=== PATIENT | male | born 2000 | race African-American/Black ===

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

== ENCOUNTER 2018-02-11 23:04 | Emergency (ER) | payer SELFPAY ==
[2018-02-12] MEDS ORDERED: ACETAMINOPHEN 325 MG TABLET ONE (00:18)
--- NOTE | 2018-02-12 00:43 | ER ---
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 Transition of ak1 care: patient was not received from another setting of care. Onset of symptoms is unknown. Risk Assessment: Do you want to hurt yourself or someone else? Patient reports no desire to harm self or others. Initial Sepsis Screen: Does the patient meet any 2 criteria? No. Patient's initial sepsis screen is negative. Does the patient have a suspected source of infection? No. Patient's initial sepsis screen is negative. Care prior to arrival: None. 23:19 Acuity: KOREY 4 ak1 23:19 Method Of Arrival: Ambulatory ak1 Triage Assessment: 23:20 General: Appears in no apparent distress. Behavior is calm, cooperative. Pain: ak1 Complains of pain in throat and headache. EENT: Reports pain in throat when swallowing. Neuro: Level of Consciousness is awake, alert, obeys commands, Oriented to person, place, time, situation, Poultry Farm Supervisor are equal bilaterally Moves all extremities. Gait is steady, Speech is normal, Facial symmetry appears normal. Cardiovascular: No deficits noted. Respiratory: No deficits noted. GI: No signs and/or symptoms were reported involving the gastrointestinal system. : No signs and/or symptoms were reported regarding the genitourinary system. Derm: No signs and/or symptoms reported regarding the dermatologic system. Musculoskeletal: No signs and/or symptoms reported regarding the musculoskeletal system. Historical: - Allergies: 23:20 PENICILLINS; ak1 23:20 Bees; ak1 - Home Meds: 23:20 None [Active]; ak1 - PMHx: 23:20 None; ak1 - PSHx: 23:20 HAND SURGERY; Appendectomy; ak1 - Immunization history:: Adult Immunizations up to date. - Social history:: Smoking status: Patient/guardian denies using tobacco. - Ebola Screening: : No symptoms or risks identified at this time. Screenin/14 00:58 Abuse screen: Denies threats or abuse. Denies injuries from another. Nutritional ak1 screening: No deficits noted. Tuberculosis screening: No symptoms or risk factors identified. Fall Risk None identified. Assessment: 00:59 Respiratory: Airway is patent Respiratory effort is even, unlabored, Breath sounds are ak1 clear. 00:59 EENT: Throat is reddened. ak1 01:00 Reassessment: Patient appears in no apparent distress at this time. see triage ak1 assessment. Vital Signs: 02/11 23:18 BP 131 / 70; Pulse 98; Resp 16; Temp 100.0(O); Pulse Ox 99% on R/A; Weight 90.72 kg ak1 (R); Height 6 ft. 2 in. (187.96 cm) (R); Pain 8/10; 02/12 00:58 BP 129 / 69; Pulse 84; Resp 16; Temp 99.6(O); Pulse Ox 100% on R/A; Pain 7/10; ak1 02/11 23:18 Body Mass Index 25.68 (90.72 kg, 187.96 cm) ak1 ED Course: 02/11 23:07 Patient arrived in ED. es 23:18 Ana Higuera, RN is Primary Nurse. ak1 23:18 Wolf Torres PA is PHCP. jr8 23:18 Niko Davis MD is Attending Physician. jr8 23:20 Triage completed. ak1 23:20 Arm band placed on Patient placed in an exam room, on a stretcher, on pulse oximetry, ak1 Patient notified of wait time. 02/12 00:58 Patient has correct armband on for positive identification. Bed in low position. Call ak1 light in reach. Side rails up X 1. Pulse ox on. NIBP on. 00:59 No provider procedures requiring assistance completed. Patient did not have IV access ak1 during this emergency room visit. Administered Medications: 00:14 Drug: Tylenol 650 mg Route: PO; ak1 01:00 Follow up: Response: No adverse reaction ak1 Outcome: 00:43 Discharge ordered by . jr8 00:59 Discharged to home ambulatory, with family. ak1 00:59 Condition: good 00:59 Discharge instructions given to patient, family, Instructed on discharge instructions, follow up and referral plans. no drinking with medication, no driving heavy equipment, medication usage, Demonstrated understanding of instructions, follow-up care, medications, Prescriptions given X 1. 01:02 Patient left the ED. ak1 Signatures: Keyona Blanco Josh, PA PA jr8 Ana Higuera, RN RN ak1
--- NOTE | 2018-02-12 00:44 | EDPHYS ---
Physician Documentation [facility] Name: Jose Hutson Age: 17 yrs Sex: Male : 2000 Arrival Date: 02/11/2018 Time: 23:07 Bed 15 Private MD: ED Physician Niko Davis HPI: 02/12 00:39 This 17 yrs old Black Male presents to ER via Ambulatory with complaints of Sore jr8 Throat, Headache, Back Pain. 00:39 The patient presents with sore throat. The patient describes throat pain as constant. jr8 Onset: The symptoms/episode began/occurred acutely, today. Severity of symptoms: At their worst the symptoms were moderate, in the emergency department the symptoms are unchanged. Associated signs and symptoms: Pertinent positives: fever. The patient has not experienced similar symptoms in the past. The patient has not recently seen a physician. Historical: - Allergies: 02/11 23:20 PENICILLINS; ak1 23:20 Bees; ak1 - Home Meds: 23:20 None [Active]; ak1 - PMHx: 23:20 None; ak1 - PSHx: 23:20 HAND SURGERY; Appendectomy; ak1 - Immunization history:: Adult Immunizations up to date. - Social history:: Smoking status: Patient/guardian denies using tobacco. - Ebola Screening: : No symptoms or risks identified at this time. ROS: 02/12 00:39 Eyes: Negative for injury, pain, redness, and discharge, Neck: Negative for injury, jr8 pain, and swelling, Cardiovascular: Negative for chest pain, palpitations, and edema, Respiratory: Negative for shortness of breath, cough, wheezing, and pleuritic chest pain, Abdomen/GI: Negative for abdominal pain, nausea, vomiting, diarrhea, and constipation, Back: Negative for injury and pain, MS/Extremity: Negative for injury and deformity, Skin: Negative for injury, rash, and discoloration, Neuro: Negative for headache, weakness, numbness, tingling, and seizure. Constitutional: Positive for fever. ENT: Positive for sore throat. Exam: 00:39 Eyes: Pupils equal round and reactive to light, extra-ocular motions intact. Lids and jr8 lashes normal. Conjunctiva and sclera are non-icteric and not injected. Cornea within normal limits. Periorbital areas with no swelling, redness, or edema. Neck: Trachea midline, no thyromegaly or masses palpated, and no cervical lymphadenopathy. Supple, full range of motion without nuchal rigidity, or vertebral point tenderness. No Meningismus. Cardiovascular: Regular rate and rhythm with a normal S1 and S2. No gallops, murmurs, or rubs. Normal PMI, no JVD. No pulse deficits. Respiratory: Lungs have equal breath sounds bilaterally, clear to auscultation and percussion. No rales, rhonchi or wheezes noted. No increased work of breathing, no retractions or nasal flaring. Abdomen/GI: Soft, non-tender, with normal bowel sounds. No distension or tympany. No guarding or rebound. No evidence of tenderness throughout. Back: No spinal tenderness. No costovertebral tenderness. Full range of motion. Skin: Warm, dry with normal turgor. Normal color with no rashes, no lesions, and no evidence of cellulitis. MS/ Extremity: Pulses equal, no cyanosis. Neurovascular intact. Full, normal range of motion. Neuro: Awake and alert, GCS 15, oriented to person, place, time, and situation. Cranial nerves II-XII grossly intact. Motor strength 5/5 in all extremities. Sensory grossly intact. Cerebellar exam normal. Normal gait. 00:39 ENT: Exam is negative for earache, ear discharge, TM abnormalities, nasal discharge, Posterior pharynx: Airway: patent, Tonsils: bilaterally enlarged, with erythema, with exudate, no ulcerations, Uvula: midline, non-edematous, no erythema, swelling, is not appreciated, erythema, that is mild. Vital Signs: 02/11 23:18 BP 131 / 70; Pulse 98; Resp 16; Temp 100.0(O); Pulse Ox 99% on R/A; Weight 90.72 kg ak1 (R); Height 6 ft. 2 in. (187.96 cm) (R); Pain 8/10; 02/12 00:58 BP 129 / 69; Pulse 84; Resp 16; Temp 99.6(O); Pulse Ox 100% on R/A; Pain 7/10; ak1 02/11 23:18 Body Mass Index 25.68 (90.72 kg, 187.96 cm) ak1 MDM: 02/11 23:19 Patient medically screened. jr8 02/12 00:39 Data reviewed: vital signs, nurses notes, and as a result, I will discharge patient. jr8 Data interpreted: Pulse oximetry: on room air is 99 %. Interpretation: normal. Counseling: I had a detailed discussion with the patient and/or guardian regarding: the historical points, exam findings, and any diagnostic results supporting the discharge/admit diagnosis, the need for outpatient follow up, a family practitioner, to return to the emergency department if symptoms worsen or persist or if there are any questions or concerns that arise at home. 02/12 00:07 Order name: Strep; Complete Time: 00:43 ak1 02/12 00:08 Order name: Flu; Complete Time: 00:43 ak1 02/12 00:40 Order name: Throat Culture EDMS Administered Medications: 00:14 Drug: Tylenol 650 mg Route: PO; ak1 01:00 Follow up: Response: No adverse reaction ak1 Disposition: 02:49 Co-signature as Attending Physician, Niko Davis MD I agree with the assessment and kdr plan of care. Disposition: 02/12/18 00:43 Discharged to Home. Impression: Acute tonsillitis. - Condition is Stable. - Discharge Instructions: Tonsillitis. - Prescriptions for Zithromax Z- Junior 250 mg Oral Tablet - take 1 tablet by ORAL route as directed for 5 days Day 1 - take two (2) tablets one time. Day 2, 3, 4 , 5 take one (1) tablet once daily.; 6 tablet. - Medication Reconciliation Form, Thank You Letter, Antibiotic Education, Prescription Opioid Use form. - Follow up: Private Physician; When: 1 week; Reason: Recheck today's complaints, Continuance of care, Re-evaluation by your physician. - Problem is new. - Symptoms have improved. Signatures: Dispatcher [employer] EDNM Niko Davis MD MD [facility] Wolf Torres PA PA jr8 Ana Higuera RN RN ak1 Corrections: (The following items were deleted from the chart) 01:02 00:43 02/12/2018 00:43 Discharged to Home. Impression: Acute tonsillitis. Condition is ak1 Stable. Forms are Medication Reconciliation Form, Thank You Letter, Antibiotic Education, Prescription Opioid Use. Follow up: Private Physician; When: 1 week; Reason: Recheck today's complaints, Continuance of care, Re-evaluation by your physician. Problem is new. Symptoms have improved. jr8
[2018-02-12 01:10] VITALS: BP 129/69; TEMP 99.6; O2SAT 100
== END 2018-02-12 01:02 | disposition home or self-care (01) ==
LOC: ER 23:04
DX: J03.90 Acute tonsillitis, unspecified (principal); Z88.0 Allergy status to penicillin; Z91.030 Bee allergy status
CPT/HCPCS: 87070; 87081; 87804; 99283

== ENCOUNTER 2022-02-21 05:55 | Emergency (ER) | payer SELFPAY ==
--- OUTSIDE RECORDS SUMMARY | 2022-02-21 05:58 | XMS REPORT | Continuity of Care Document ---
:2000 Author Organization [facility] t Address 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 12-25 ity of 00:00: [place] [id number] Medical Branch Allergies, Adverse Reactions, Alerts Allergy Allergy Status Severity Reaction(s) Onset Inactive Treating Comm ents Source Name Type Date Date Clinician PENICILL Drug Active Rash Univers INS Class 6- ity of 00:00: [address] Penicill Propensi Active Rash Univer s ins ty to 11-27 ity of adverse 00:00: [place] [facility] Social History Social Habit Start Date Stop Date Quantity Comments Source Exposure to Unable to assess Univers ity of SARS-CoV-2 [facility] (event) Branch Sex Assigned At [birth year] Universit y of 00:00:00 00:00:00 [facility] Smoking Status Start Date Stop Date Source Unknown if ever smoked [facility] y [facility] Medications This patient has no known medications. Vital Signs Vital Name Observation Time Observation Value Comments Source Diastolic blood 2021-08-19 15:47:00 103 mm[Hg] Unive rsity of pressure [facility] Heart rate 2021-08-19 15:47:00 94 /min Universi ty [facility] Body temperature 2021-08-19 15:47:00 36 Rody Univ ersity of [facility] Respiratory rate 2021-08-19 15:47:00 18 /min [facility] Body weight 2021-08-19 15:47:00 90.719 kg [facility] Oxygen saturation in 2021-08-19 15:47:00 99 /min [facility] Arterial blood by [facility] Pulse oximetry Branch Systolic blood 2021-08-19 15:47:00 171 mm[Hg] Univer sity of pressure [facility] Procedures Procedure Date / Time Performed Performing Clinician Sourc e NOTICE OF PRIVACY 2021-08-19 15:43:14 Doctor Unassigned, No Univ [facility] PRACTICES Name [facility] CONSENT/REFUSAL FOR 2021-08-19 15:42:56 Doctor Unassigned, No Un [facility] DIAGNOSIS AND Name [facility] [place] TREATMENT Encounters Start End Encounter Admission Attending Care Care Encounter Source Date/Time Date/Time Type Type Clinicians Facility Department ID 2021-08-19 2021-08-19 Emergency X YOLANDA WIJITENDRA ERT [id number] Univers 10:52:00 11:12:00 JADE mckeon [facility] 2021-08-19 2021-08-19 Emergency Yolanda WIJITENDRA [id number] Univers 10:52:00 11:12:00 Jade HOLGUIN [id number] linda pickard DEETH [id number] [facility] [id number] [facility] 084 Branch Results This patient has no known results.
--- NOTE | 2022-02-21 06:05 | ER ---
Nurse's Notes [facility] Name: Jose Hutson Age: 21 yrs Sex: Male : 2000 Arrival Date: 02/21/2022 Time: 05:57 Bed IW1 Private MD: Diagnosis: Uvulitis;Pain in throat Presentation: 02/21 06:02 Chief complaint: Patient states: "I looked at my uvula and it looked really red and tw5 swollen. Coronavirus screen: Vaccine status: Patient reports receiving the 2nd dose of the covid vaccine. Unknown. Ebola Screen: Patient negative for fever greater than or equal to 101.5 degrees Fahrenheit, and additional compatible Ebola Virus Disease symptoms Patient denies exposure to infectious person. Patient denies travel to an Ebola-affected area in the 21 days before illness onset. Initial Sepsis Screen: Does the patient meet any 2 criteria? No. Patient's initial sepsis screen is negative. Does the patient have a suspected source of infection? No. Patient's initial sepsis screen is negative. Risk Assessment: Do you want to hurt yourself or someone else? Patient reports no desire to harm self or others. Onset of symptoms is unknown. 06:02 Method Of Arrival: Ambulatory tw5 06:02 Acuity: KOREY 5 tw5 Triage Assessment: 06:03 General: Appears in no apparent distress. Behavior is calm, cooperative, appropriate tw5 for age. Pain: Complains of pain in throat Pain currently is 7 out of 10 on a pain scale. EENT: Throat is reddened. Historical: - Allergies: 06:03 Bees; tw5 06:03 PENICILLINS; tw5 - PMHx: 06:03 None; tw5 - PSHx: 06:03 None; tw5 - Immunization history:: Adult Immunizations not up to date. - Social history:: Smoking status: Patient reports the use of cigarette tobacco products, cigars. Screenin:04 Abuse screen: Denies threats or abuse. Denies injuries from another. Nutritional tw5 screening: No deficits noted. Tuberculosis screening: No symptoms or risk factors identified. Fall Risk None identified. Assessment: 06:04 General: see triage. tw5 06:27 Respiratory: Airway is patent Respiratory effort is even, unlabored, Breath sounds are tw5 clear. Vital Signs: 06:02 BP 130 / 71; Pulse 87; Resp 18; Temp 98.4; Pulse Ox 100% ; Weight 95.25 kg; Height 6 tw5 ft. 2 in. (187.96 cm); Pain 7/10; 06:02 Body Mass Index 26.96 (95.25 kg, 187.96 cm) tw5 ED Course: 05:57 Patient arrived in ED. bp1 05:58 Ramu Hayward DO is Attending Physician. ms3 06:03 Triage completed. tw5 06:03 Nicolas Moeller DO is Referral Physician. ms3 06:03 Arm band placed on. tw5 06:04 Patient has correct armband on for positive identification. tw5 06:04 No provider procedures requiring assistance completed. Patient did not have IV access tw5 during this emergency room visit. Administered Medications: 06:16 Drug: Decadron (dexamethasone) 10 mg Route: IM; Site: left deltoid; tw5 Medication: 06:04 VIS not applicable for this client. tw5 Outcome: 06:04 Discharge ordered by . ms3 06:27 Discharged to home ambulatory. tw5 06:27 Condition: good 06:27 Discharge instructions given to patient, Instructed on discharge instructions, follow up and referral plans. Demonstrated understanding of instructions. 06:28 Patient left the ED. tw5 Signatures: Ramu Hayward DO DO ms3 FrancoCarlotta moya bp1 Tanvi Melchor tw5
--- NOTE | 2022-02-21 06:05 | EDPHYS ---
Physician Documentation [facility] Name: Jose Hutson Age: 21 yrs Sex: Male : 2000 Arrival Date: 02/21/2022 Time: 05:57 Bed IW1 Private MD: ED Physician Ramu Hayward HPI: 02/21 06:08 This 21 yrs old Black Male presents to ER via Ambulatory with complaints of Sore ms3 Throat, 'Swollen Uvula'. 06:08 21-year-old male with no past medical history presents for uvula swelling that he noted ms3 at 5:30 AM. Patient states when he awoke he could feel his uvula swollen, his noted he was snoring. Patient denies pain at this time. Patient states he does have pain when swallowing. Patient denies alleviating factors. Patient denies fevers, chills, nausea, vomiting.. Historical: - Allergies: 06:03 Bees; tw5 06:03 PENICILLINS; tw5 - PMHx: 06:03 None; tw5 - PSHx: 06:03 None; tw5 - Immunization history:: Adult Immunizations not up to date. - Social history:: Smoking status: Patient reports the use of cigarette tobacco products, cigars. ROS: 06:08 Constitutional: Negative for fever, and chills. Eyes: Negative for injury, pain, ms3 redness, and discharge, Cardiovascular: Negative for chest pain, and palpitations. Respiratory: Negative for shortness of breath, cough, wheezing, and pleuritic chest pain, Abdomen/GI: Negative for abdominal pain, nausea, vomiting, diarrhea, and constipation, MS/Extremity: Negative for injury and deformity, Skin: Negative for injury, rash, and discoloration, Neuro: Negative for headache, weakness, numbness, tingling. 06:08 ENT: Positive for sore throat. Exam: 06:08 Constitutional: This is a well developed, well nourished patient who is awake, alert, ms3 and in no acute distress. Head/Face: Normocephalic, atraumatic. Eyes: Pupils equal round and reactive to light, extra-ocular motions intact. Lids and lashes normal. Conjunctiva and sclera are non-icteric and not injected. Periorbital areas with no swelling, redness, or edema. 06:08 Cardiovascular: Regular rate and rhythm with a normal S1 and S2. No gallops, murmurs, or rubs. Normal PMI, no JVD. No pulse deficits. Respiratory: Lungs have equal breath sounds bilaterally, clear to auscultation and percussion. No rales, rhonchi or wheezes noted. No increased work of breathing, no retractions or nasal flaring. Abdomen/GI: Soft, non-tender, with normal bowel sounds. No distension or tympany. No guarding or rebound. No evidence of tenderness throughout. Skin: Warm, dry with normal turgor. Normal color with no rashes, no lesions, and no evidence of cellulitis. MS/ Extremity: Pulses equal, no cyanosis. Neurovascular intact. Full, normal range of motion. Psych: Awake, alert, with orientation to person, place and time. Behavior, mood, and affect are within normal limits. 06:08 ENT: Posterior pharynx: Uvula: edematous, erythema. Vital Signs: 06:02 BP 130 / 71; Pulse 87; Resp 18; Temp 98.4; Pulse Ox 100% ; Weight 95.25 kg; Height 6 tw5 ft. 2 in. (187.96 cm); Pain 7/10; 06:02 Body Mass Index 26.96 (95.25 kg, 187.96 cm) tw5 MDM: 06:04 Patient medically screened. ms3 06:08 Differential diagnosis: Allergic rhinitis, pharyngitis, uvulitis. Data reviewed: vital ms3 signs, nurses notes, and as a result, I will discharge patient. Counseling: I had a detailed discussion with the patient and/or guardian regarding: the historical points, exam findings, and any diagnostic results supporting the discharge/admit diagnosis, the need for outpatient follow up, to return to the emergency department if symptoms worsen or persist or if there are any questions or concerns that arise at home. ED course: Discussed physical exam findings with patient. Patient to follow-up with his primary care physician in 2 to 3 days. Patient understands and agrees with plan. All questions were answered. Return precautions discussed include worsening symptoms, or any other concerns.. Administered Medications: 06:16 Drug: Decadron (dexamethasone) 10 mg Route: IM; Site: left deltoid; tw5 Disposition Summary: 02/21/22 06:04 Discharge Ordered Location: Home ms3 Condition: Stable ms3 Diagnosis - Uvulitis ms3 - Pain in throat ms3 Followup: ms3 - With: Nicolas Moeller DO - When: 2 - 3 days - Reason: Recheck today's complaints Discharge Instructions: - Discharge Summary Sheet ms3 Forms: - Medication Reconciliation Form ms3 - Thank You Letter ms3 - Antibiotic Education ms3 - Prescription Opioid Use ms3 - Work release form tw5 Prescriptions: - azithromycin 500 mg Oral tablet - take 1 tablet by ORAL route once daily for 5 days; 5 tablet; Refills: 0, ms3 Product Selection Permitted Signatures: Ramu Hayward DO DO ms3 Tanvi Melchor tw5
[2022-02-21] MEDS ORDERED: dexAMETHasone 10 MG/ML VIAL ONE (06:20)
[2022-02-22 16:06] VITALS: BP 130/71; TEMP 98.4; O2SAT 100
== END 2022-02-21 06:28 | disposition home or self-care (01) ==
LOC: ER 05:55
DX: K12.2 Cellulitis and abscess of mouth (principal); F17.290 Nicotine dependence, other tobacco product, uncomplicated; Z88.0 Allergy status to penicillin; Z91.030 Bee allergy status
CPT/HCPCS: 96372; 99283; J1100

== ENCOUNTER 2022-11-16 22:19 | Emergency (ER) | payer SELFPAY ==
--- OUTSIDE RECORDS SUMMARY | 2022-11-16 22:25 | XMS REPORT | Continuity of Care Document ---
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 12-25 ity of 00:00: [address] Allergies, Adverse Reactions, Alerts Allergy Allergy Status Severity Reaction(s) Onset Inactive Treating Comm ents Source Name Type Date Date Clinician PENICILL Drug Active Rash Univers INS Class 11-27 ity of 00:00: [address] Branch Penicill Propensi Active Rash Univer s ins ty to 11-27 ity of adverse 00:00: [place] [facility] Social History Social Habit Start Date Stop Date Quantity Comments Source Exposure to Unable to assess Univers ity of SARS-CoV-2 [facility] (event) Branch Sex Assigned At [birth year] Universit y of 00:00:00 00:00:00 [facility] Smoking Status Start Date Stop Date Source Unknown if ever smoked [facility] y [facility] Medications This patient has no known medications. Vital Signs Vital Name Observation Time Observation Value Comments Source Diastolic blood 2021-08-19 15:47:00 103 mm[Hg] Unive rsity of pressure [facility] Heart rate 2021-08-19 15:47:00 94 /min Universi ty of [facility] Body temperature 2021-08-19 15:47:[address] [facility] Respiratory rate 2021-08-19 15:47:00 18 /min [facility] Body weight 2021-08-19 15:47:00 90.719 kg [facility] Oxygen saturation in 2021-08-19 15:47:00 99 /min [facility] Arterial blood by [facility] Pulse oximetry Branch Systolic blood 2021-08-19 15:47:00 171 mm[Hg] Univer sity of pressure [facility] Procedures Procedure Date / Time Performed Performing Clinician Sour e NOTICE OF PRIVACY 2021-08-19 15:43:14 Doctor Unassigned, No Univ [facility] PRACTICES Name Medical Branch CONSENT/REFUSAL FOR 2021-08-19 15:42:56 Doctor Unassigned, No [facility] DI[facility] AND Name Medical Branch TREATMENT Encounters Start End Encounter Admission Attending Care Care Encounter Source Date/Time Date/Time Type Type Clinicians Facility Department ID 2021-08-19 2021-08-19 Emergency X YOLANDA [facility] ERT [id number] Univers 10:52:00 11:12:00 JADE mckeon [facility] 2021-08-19 2021-08-19 Emergency Yolanda [facility] [id number] Univers 10:52:00 11:12:00 Jade HOLGUIN [id number] linda [facility] [id number] [facility] [id number] [facility] 084 Branch Results This patient has no known results.
[2022-11-16 23:48] LABS: Specific Gravity 1.025 (1.005-1.030); Urine Bacteria None Seen /HPF (<20); Urine Bilirubin NEGATIVE (Negative); Urine Blood 2+ (Negative); Urine Clarity Clear (Clear); Urine Color Light-Yellow (Yellow); Urine Glucose NEGATIVE (Negative); Urine Mucus Slight /HPF (None Seen); Urine Protein TRACE (Negative); Urine RBC >50 /HPF (None Seen); Urine Urobilinogen 1+ (Normal); Urine pH 6.5 (5.0-7.0)
--- NOTE | 2022-11-17 00:02 | ER ---
Nurse's Notes [facility] Name: Jose Hutson Age: 22 yrs Sex: Male : 2000 Arrival Date: 11/16/2022 Time: 22:19 Bed 20 Private MD: Diagnosis: Diarrhea, unspecified;Hematuria, unspecified;Encounter for screening for infections with a predominantly sexual mode of transmission Presentation: 11/16 22:44 Chief complaint: Patient states: I have been having some diarrhea and it also kind of kd3 hurts when I pee but it is sort of pink colored. I think I may have a UTI. I do have unprotected sex so it may be an STI. Coronavirus screen: Vaccine status: Patient reports being unvaccinated. Ebola Screen: No symptoms or risks identified at this time. Initial Sepsis Screen: Does the patient meet any 2 criteria? No. Patient's initial sepsis screen is negative. Does the patient have a suspected source of infection? Yes: Dysuria/Frequency/Urgency/UTI. Risk Assessment: Do you want to hurt yourself or someone else? Patient reports no desire to harm self or others. Onset of symptoms was November 16, 2022. 22:44 Method Of Arrival: Ambulatory kd3 22:44 Acuity: KOREY 3 kd3 Triage Assessment: 22:47 General: Appears in no apparent distress. Behavior is calm, cooperative. Pain: kd3 Complains of pain in pelvis. GI: Reports diarrhea. Historical: - Allergies: 22:47 PENICILLINS; kd3 22:47 Bees; kd3 - Immunization history:: Adult Immunizations up to date. - Social history:: Smoking status: . Screenin/19 00:42 [facility] ED Fall Risk Assessment (Adult) History of falling in the last 3 months, vc1 including since admission No falls in past 3 months (0 pts) Confusion or Disorientation No (0 pts) Intoxicated or Sedated No (0 pts) Impaired Gait No (0 pts) Mobility Assist Device Used No (0 pt) Altered Elimination No (0 pt) Score/Fall Risk Level 0 - 2 = Low Risk Oriented to surroundings, Maintained a safe environment, Educated pt \T\ family on fall prevention, incl call for assistance when getting out of bed. Abuse screen: Denies threats or abuse. Nutritional screening: No deficits noted. Tuberculosis screening: No symptoms or risk factors identified. Vital Signs: 11/16 22:44 BP 166 / 92; Pulse 94; Resp 16; Temp 98.1(O); Pulse Ox 100% ; Weight 99.79 kg; Height 6 kd3 ft. 2 in. ; 22:44 Body Mass Index 28.25 (99.79 kg, 187.96 cm) kd3 ED Course: 22:23 Patient arrived in ED. ja2 22:36 Victor[facility] Lorenzo [facility] cp 22:36 Devin Welsh MD is Attending Physician. cp 22:47 Triage completed. kd3 22:47 Arm band placed on left wrist. kd3 23:05 Urinalysis W/Microscopic Sent. kd3 23:55 Gc Culture Sent. kd3 11/17 00:42 No provider procedures requiring assistance completed. Patient did not have IV access vc1 during this emergency room visit. Administered Medications: 00:13 Drug: Rocephin (cefTRIAXone) IM 500 mg Route: IM; Site: left gluteus; vc1 00:13 Drug: AZITHromycin PO 1 grams Route: PO; vc1 Medication: 00:43 VIS not applicable for this client. vc1 Outcome: 00:01 Discharge ordered by . cp 00:43 Discharged to home ambulatory. vc1 00:43 Condition: good 00:43 Discharge instructions given to patient, Instructed on discharge instructions, follow up and referral plans. Demonstrated understanding of instructions, follow-up care. 00:43 Patient left the ED. vc1 Signatures: Victoriano Lorenzo PA PA cp Alexander, Jessica 2 Edith Cintron RN RN kd3 Marcelina Curry RN RN vc1
--- NOTE | 2022-11-17 00:02 | EDPHYS ---
Physician Documentation [facility] Name: Jose Hutson Age: 22 yrs Sex: Male : 2000 Arrival Date: 11/16/2022 Time: 22:19 Bed 20 Private MD: ED Physician Devin Welsh HPI: 11/16 23:00 This 22 yrs old Black Male presents to ER via Ambulatory with complaints of Abdominal cp Pain, Diarrhea, Dizziness. 23:00 The patient presents with diarrhea. Associated signs and symptoms: Pertinent positives: cp dysuria, hematuria. Severity of pain: in the emergency department the pain has resolved. Admits to having unprotected intercourse with new partner. Historical: - Allergies: 22:47 PENICILLINS; kd3 22:47 Bees; kd3 - Immunization history:: Adult Immunizations up to date. - Social history:: Smoking status: . ROS: 23:05 Constitutional: Negative for body aches, chills, fever, poor PO intake. cp 23:05 Eyes: Negative for injury, pain, redness, and discharge. cp 23:05 ENT: Negative for drainage from ear(s), ear pain, sore throat, difficulty swallowing, difficulty handling secretions. 23:05 Respiratory: Negative for cough, shortness of breath, wheezing. 23:05 Abdomen/GI: Positive for diarrhea, Negative for abdominal pain, vomiting. 23:05 Back: Negative for pain at rest, pain with movement. 23:05 : Positive for hematuria, burning with urination, Negative for penile discharge, penile pain, testicular pain 23:05 Skin: Negative for rash. 23:05 Neuro: Negative for altered mental status, headache, weakness. 23:05 All other systems are negative. Exam: 23:10 Constitutional: The patient appears in no acute distress, alert, awake, comfortable, cp non-toxic, well developed, well nourished. 23:10 Head/Face: Normocephalic, atraumatic. cp 23:10 Eyes: Periorbital structures: appear normal, Conjunctiva: normal, no exudate, no injection, Sclera: no appreciated abnormality, Lids and lashes: appear normal, bilaterally. 23:10 ENT: External ear(s): are unremarkable, Nose: is normal, Mouth: Lips: moist, Oral mucosa: pink and intact, moist, Posterior pharynx: is normal, airway is patent. 23:10 Chest/axilla: Inspection: normal. 23:10 Cardiovascular: Rate: normal, Rhythm: regular. 23:10 Respiratory: the patient does not display signs of respiratory distress, Respirations: normal, no use of accessory muscles, no retractions, labored breathing, is not present. 23:10 Abdomen/GI: Inspection: abdomen appears normal, Palpation: abdomen is soft and non-tender, in all quadrants. 23:10 Back: pain, is absent, ROM is normal. 23:10 Neuro: Orientation: to person, place \T\ time. Mentation: is normal, Motor: moves all fours, strength is normal, Gait: is steady, at a normal pace, without difficulty. Vital Signs: 22:44 BP 166 / 92; Pulse 94; Resp 16; Temp 98.1(O); Pulse Ox 100% ; Weight 99.79 kg; Height 6 kd3 ft. 2 in. ; 22:44 Body Mass Index 28.25 (99.79 kg, 187.96 cm) kd3 MDM: 22:53 Patient medically screened. 23:30 Differential diagnosis: appendicitis, non-specific abd pain, Testicular Torsion, cp Ureterolithiasis, urinary tract infection, STD. 11/17 00:00 Data reviewed: vital signs, nurses notes, lab test result(s). 00:00 I considered the following discharge prescriptions or medication management in the emergency department Medications were administered in the Emergency Department. See MAR. Counseling: I had a detailed discussion with the patient and/or guardian regarding: the historical points, exam findings, and any diagnostic results supporting the discharge/admit diagnosis, to return to the emergency department if symptoms worsen or persist or if there are any questions or concerns that arise at home. 11/16 22:46 Order name: Urinalysis W/Microscopic; Complete Time: 23:57 11/16 23:57 Interpretation: Reviewed. 11/16 22:46 Order name: Gc Culture 11/17 00:09 Order name: GC (Shay/Chl) Probe URINE EDMS Administered Medications: 00:13 Drug: Rocephin (cefTRIAXone) IM 500 mg Route: IM; Site: left gluteus; vc1 00:13 Drug: AZITHromycin PO 1 grams Route: PO; vc1 Disposition Summary: 11/17/22 00:01 Discharge Ordered Location: Home cp Problem: new cp Symptoms: have improved cp Condition: Stable cp Diagnosis - Diarrhea, unspecified cp - Hematuria, unspecified cp - Encounter for screening for infections with a predominantly sexual mode of cp transmission Followup: cp - With: Private Physician - When: 2 - 3 days - Reason: symptoms continue Discharge Instructions: - Discharge Summary Sheet cp - Food Choices to Help Relieve Diarrhea, Adult cp - Diarrhea, Adult cp - Hematuria, Adult cp - Preventing Sexually Transmitted Infections, Adult cp Forms: - Medication Reconciliation Form cp - Thank You Letter cp - Antibiotic Education cp - Prescription Opioid Use cp Addendum: 11/19/2022 20:09 Co-signature as Attending Physician, Devin Welsh MD I agree with the assessment s p4 and plan of care. I reviewed the patient's care provided by the Advanced Practice Provider and agree with the diagnosis and treatment plan. Signatures: Dispatcher [employer] EDMS Victoriano Lorenzo PA PA cp Doucette, Kyli, RN RN kd3 Marcelina Curry RN RN vc1 Devin Welsh MD MD sp4
[2022-11-17] MEDS ORDERED: CEFTRIAXONE 500 MG/VIAL ONE (00:03)
[2022-11-17] MEDS ORDERED: LIDOCAINE 1% MPF 2 ML AMPULE ONE (00:03)
[2022-11-17] MEDS ORDERED: AZITHROMYCIN 250 MG TAB ONE (00:08)
[2022-11-17 01:06] VITALS: BP 166/92; TEMP 98.1; O2SAT 100
== END 2022-11-17 00:43 | disposition home or self-care (01) ==
LOC: ER 22:19
DX: Z11.3 Encounter for screening for infections with a predominantly sexual mode of transmission (principal); R31.9 Hematuria, unspecified; R19.7 Diarrhea, unspecified
CPT/HCPCS: 81001; 87490; 87590; 96372; 99284

== ENCOUNTER 2024-06-11 15:54 | Emergency (ER) | payer OTHER, SELFPAY ==
--- OUTSIDE RECORDS SUMMARY | 2024-06-11 15:56 | XMS REPORT | Continuity of Care Document ---
Author Name Unknown Address [address] [facility] [address]. [address] [place] [address] [facility] thconnect Address [address] [facility]. [address] [place] [address] Care Team Providers Care Rail Operator Name Role Phone PCP, PATIENT DOES NOT HAVE A Primary Care Physic marisel JADE Gutierrez Attending Clinician Unavailab Jade Barfield DO Attending Clinician [phone] Problems Condition Name Condition Details Condition Category Status Onset Date Resolution Date Last Treatment Date Treating Clinician Comments Source Boxer's fracture Boxer's fracture Disease Active 12-25 00:00: 00 [facility] Allergies, Adverse Reactions, Alerts Allergy Name Allergy Type Status Severity Reaction(s) Onset Date Inactive Date Treating Clinician Comments Source PENICILL INS Drug Class Active Rash 11-27 00:00: 00 [facility] Penicill ins Propensi ty to adverse reaction s Active Rash 11-27 00:00: 00 [facility] Social History Social Habit Start Date Stop Date Quantity Comments Source Exposure to SARS-CoV-2 (event) Unable to assess [facility] Sex Assigned At 2000 00:00:00 2000 00:00:00 [facility] Smoking Status Start Date Stop Date Source Unknown if ever smoked [facility] Vital Signs Vital Name Observation Time Observation Value Comments S ource Diastolic blood pressure 2021-08-19 15:47:00 103 mm[Hg] [place] [facility] Heart rate 2021-08-19 15:47:00 94 /min [facility] Body temperature 2021-08-19 15:47:00 36 Rody [facility] Respiratory rate 2021-08-19 15:47:00 18 /min [facility] Body weight 2021-08-19 15:47:00 90.719 kg [facility] Oxygen saturation in Arterial blood by Pulse oximetry 2021-08-19 15:47:00 99 /min [place] [facility] Systolic blood pressure 2021-08-19 15:47:00 171 mm[Hg] [place] [facility] Procedures Procedure Date / Time Performed Performing Clinicia n Source NOTICE OF PRIVACY PRACTICES 2021-08-19 15:43:14 Doctor Unassigned, [place] [facility] CONSENT/REFUSAL FOR DIAGNOSIS AND TREATMENT 2021-08-19 15:42:56 Doctor Unassigned, [place] [facility] Encounters Start Date/Time End Date/Time Encounter Type Admission Type Attending [facility] Care Facility Care Department Encounter ID Source 2021-08-19 10:52:00 2021-08-19 11:12:00 Emergency X JADE GUERRERO [facility] ERT [id number] [facility] 2021-08-19 10:52:00 2021-08-19 11:12:00 Emergency Jade Guerrero [facility] [id number] [facility]
--- NOTE | 2024-06-11 16:28 | ER ---
Nurse's Notes [facility] Name: Jose Hutson Age: 23 yrs Sex: Male : 2000 Arrival Date: 06/11/2024 Time: 15:54 Bed IW5 Private MD: Diagnosis: Periapical abscess without sinus Presentation: 06/11 16:23 Chief complaint: Patient states: R sided lower jaw tooth pain/swelling for 3 days. No ll1 known fever. Coronavirus screen: Client denies travel out of the [place] in the last 14 days. At this time, the client does not indicate any symptoms associated with coronavirus-19. Ebola Screen: Patient denies travel to an Ebola-affected area in the 21 days before illness onset. Initial Sepsis Screen: Does the patient meet any 2 criteria? No. Patient's initial sepsis screen is negative. Does the patient have a suspected source of infection? No. Patient's initial sepsis screen is negative. Risk Assessment: Do you want to hurt yourself or someone else? Patient reports no desire to harm self or others. Onset of symptoms was June 09, 2024. 16:23 Method Of Arrival: Ambulatory [facility] 16:23 Acuity: KOREY 4 ll1 Triage Assessment: 16:27 General: Appears uncomfortable, ill, Behavior is calm, cooperative, appropriate for 1 age. Pain: Complains of pain in lower right first molar (#30) Quality of pain is described as aching. EENT: Reports pain in right jaw. EENT: Reports pain when swallowing. Neuro: Reports headache. Historical: - Allergies: 16:25 PENICILLINS; ll1 16:25 Bees; ll1 - PMHx: 16:25 None; ll1 - PSHx: 16:25 Appendectomy; ll1 - Immunization history:: Adult Immunizations up to date. - Infectious Disease History:: Denies. - Social history:: Smoking status: Patient reports the use of cigarette tobacco products, denies chronic smoking, but will smoke occasionally. Screenin:30 [facility] ED Fall Risk Assessment (Adult) History of falling in the last 3 months, ll1 including since admission No falls in past 3 months (0 pts) Confusion or Disorientation No (0 pts) Intoxicated or Sedated No (0 pts) Impaired Gait No (0 pts) Mobility Assist Device Used No (0 pt) Altered Elimination No (0 pt) Score/Fall Risk Level 0 - 2 = Low Risk Maintained a safe environment, Hourly rounding (assess needs \T\ fall precautionary measures) done. Abuse screen: Denies threats or abuse. Nutritional screening: No deficits noted. Tuberculosis screening: No symptoms or risk factors identified. Assessment: 16:30 Reassessment: No changes from previously documented assessment. Patient and/or family ll1 updated on plan of care and expected duration. Pain level reassessed. Vital Signs: 16:23 BP 163 / 73; Pulse 84; Resp 17; Temp 99; Pulse Ox 97% ; Weight 102.06 kg; Height 6 ft. ll1 2 in. ; Pain 7/10; 16:23 Body Mass Index 28.89 (102.06 kg, 187.96 cm) ll1 16:23 Pain Scale: Adult ll1 ED Course: 15:57 Patient arrived in ED. mr 16:22 Nyasia Mckeon FNP-C is [facility]. kb 16:22 Demetrice Moeller MD is Attending Physician. kb 16:25 Triage completed. ll1 16:25 Arm band placed on. ll1 16:30 Patient has correct armband on for positive identification. Provided Education on: ll1 finish all prescribed antibiotics, follow-up with dentist of choice. . 16:30 No provider procedures requiring assistance completed. Patient did not have IV access ll1 during this emergency room visit. Administered Medications: No medications were administered Medication: 18:50 VIS not applicable for this client. ll1 Outcome: 16:27 Discharge ordered by . kb 16:30 Patient left the ED. ll1 16:30 Discharged to home ambulatory, ll1 16:30 Condition: stable 16:30 Discharge instructions given to patient, Instructed on discharge instructions, follow up and referral plans. medication usage, Demonstrated understanding of instructions, follow-up care, medications, Prescriptions given X 1, Signatures: Nyasia Mckeon FNP-C FNP-Laisha Lopez, Jorge Reg Lacey Lakhani, RN RN ll1
--- NOTE | 2024-06-11 16:28 | EDPHYS ---
Physician Documentation [facility] Name: Jose Hutson Age: 23 yrs Sex: Male : 2000 Arrival Date: 06/11/2024 Time: 15:54 Bed IW5 Private MD: ED Physician Demetrice Moeller HPI: 06/11 16:26 This 23 yrs old Black Male presents to ER via Ambulatory with complaints of Mouth kb Problem, Facial Swelling. 16:26 Pt is a 23 year old male who presents for pain to right lower jaw that started in his kb teeth 3 days ago and he has developed swelling since then. States he has had this several times in the past and plans to see a dentist. Denies fever, nausea, vomiting. Historical: - Allergies: 16:25 PENICILLINS; ll1 16:25 Bees; ll1 - PMHx: 16:25 None; ll1 - PSHx: 16:25 Appendectomy; ll1 - Immunization history:: Adult Immunizations up to date. - Infectious Disease History:: Denies. - Social history:: Smoking status: Patient reports the use of cigarette tobacco products, denies chronic smoking, but will smoke occasionally. ROS: 16:25 Constitutional: As per HPI kb Exam: 16:25 Constitutional: This is a well developed, well nourished patient who is awake, alert, kb and in no acute distress. Head/Face: Normocephalic, atraumatic. ENT: Moist Mucous membranes Cardiovascular: Regular rate Respiratory: Respirations even and unlabored. No increased work of breathing. Talking in full sentences Skin: Warm, dry with normal turgor. Normal color. MS/ Extremity: Pulses equal, no cyanosis. Neurovascular intact. Full, normal range of motion. Neuro: Awake and alert, GCS 15, oriented to person, place, time, and situation. 16:25 ENT: Posterior pharynx: is normal, Dental exam: dental caries, gum swelling, that is mild, specifically in the lower right first molar (#30), pain, that is moderate, right lower jaw, Vital Signs: 16:23 BP 163 / 73; Pulse 84; Resp 17; Temp 99; Pulse Ox 97% ; Weight 102.06 kg; Height 6 ft. ll1 2 in. ; Pain 7/10; 16:23 Body Mass Index 28.89 (102.06 kg, 187.96 cm) ll1 16:23 Pain Scale: Adult ll1 MDM: 16:22 Medical Screening Exam initiated kb 16:25 Differential diagnosis: dental caries, gingivitis, dental abscess, pericoronitis, kb aphthous ulcers. Data reviewed: vital signs, nurses notes. Test considered but Not performed: CT: ct considered but pt is nontoxic in appearance, tolerating po intake, no trismus. . Counseling: I had a detailed discussion with the patient and/or guardian regarding the historical points, exam findings, and any diagnostic results supporting the discharge/admit diagnosis, the need for outpatient follow up, a dentist, to return to the emergency department if symptoms worsen or persist or if there are any questions or concerns that arise at home. Administered Medications: No medications were administered Disposition Summary: 06/11/24 16:27 Discharge Ordered Notes: Location: Home kb Condition: Stable kb Diagnosis - Periapical abscess without sinus kb Followup: kb - With: Emergency Department - When: As needed - Reason: Worsening of condition Followup: kb - With: Private Physician - When: 2 - 3 days - Reason: Recheck today's complaints, Continuance of care, Re-evaluation by your physician Discharge Instructions: - Discharge Summary Sheet kb - Dental Abscess kb - Dental Pain, [id number] kb Forms: - Medication Reconciliation Form kb - Antibiotic Education kb - Prescription Opioid Use kb - Patient Portal Instructions kb - Leadership Thank You Letter kb Prescriptions: - Clindamycin HCl 300 mg Oral Capsule - take 1 capsule ORAL route every 6 hours for 10 days; 40 capsule; Refills: 0, kb Product Selection Permitted Signatures: Nyasia Mckeon FNP-C FNP-Lacey Orozco, RN RN ll1
[2024-06-14 15:25] VITALS: BP 163/73; TEMP 99; O2SAT 97
== END 2024-06-11 16:30 | disposition home or self-care (01) ==
LOC: ER 15:54
DX: K04.7 Periapical abscess without sinus (principal); F17.210 Nicotine dependence, cigarettes, uncomplicated; Z88.0 Allergy status to penicillin; Z91.030 Bee allergy status
CPT/HCPCS: 99283

== ENCOUNTER 2024-07-24 00:54 | Emergency (ER) | payer OTHER ==
--- OUTSIDE RECORDS SUMMARY | 2024-07-24 00:56 | XMS REPORT | Continuity of Care Document ---
Author Name Unknown Address [address] [facility] [address] [place] [address] [facility] thconnect Address [address] [facility]. [address] [place] [address] Care Team Providers Care Agricultural Sciences Professor Name Role Phone PCP, PATIENT DOES NOT HAVE A Primary Care Physic mariselJADE Orellana Attending Clinician Unavailab Jade Barfield DO Attending Clinician [phone] Problems Condition Name Condition Details Condition Category Status Onset Date Resolution Date Last Treatment Date Treating Clinician Comments Source Boxer's fracture Boxer's fracture Disease Active 12-25 00:00: 00 [facility] Allergies, Adverse Reactions, Alerts Allergy Name Allergy Type Status Severity Reaction(s) Onset Date Inactive Date Treating Clinician Comments Source PENICILL INS Drug Class Active Rash 11-27 00:00: 00 [facility] Penicill ins Propensi ty to adverse reaction s Active Rash 11-27 00:00: 00 [facility] Social History Social Habit Start Date Stop Date Quantity Comments Source Exposure to SARS-CoV-2 (event) Unable to assess [facility] Sex Assigned At 2000 00:00:00 2000 00[birth year]:00 [facility] Smoking Status Start Date Stop Date Source Unknown if ever smoked [facility] Vital Signs Vital Name Observation Time Observation Value Comments S babita Diastolic blood pressure 2021-08-19 15:47:00 103 mm[Hg] [place] [facility] Heart rate 2021-08-19 15:47:00 94 /min [facility] Body temperature 2021-08-19 15:47:00 36 Rody [facility] Respiratory rate 2021-08-19 15:47:00 18 /min [facility] Body weight 2021-08-19 15:47:00 90.719 kg [facility] Oxygen saturation in Arterial blood by Pulse oximetry 2021-08-19 15:47:00 99 /min [facility] Systolic blood pressure 2021-08-19 15:47:00 171 mm[Hg] [facility] Procedures Procedure Date / Time Performed Performing Clinicia n Source NOTICE OF PRIVACY PRACTICES 2021-08-19 15:43:14 Doctor Unassigned, [place] [facility] CONSENT/REFUSAL FOR DIAGNOSIS AND TREATMENT 2021-08-19 15:42:56 Doctor Unassigned, [place] [facility] Encounters Start Date/Time End Date/Time Encounter Type Admission Type Attending [facility] Care Facility Care Department Encounter ID Source 2021-08-19 10:52:00 2021-08-19 11:12:00 Emergency X JADE GUERRERO [facility] ERT [id number] [facility] 2021-08-19 10:52:00 2021-08-19 11:12:[address] [facility] [id number] [facility]
[2024-07-24] MEDS ORDERED: IBUPROFEN 200 MG TAB PO ONE (01:30)
[2024-07-24 01:43] LABS: Absolute Basophils 0.1 K/uL (0-0.5); Absolute Eosinophils 0.2 K/uL (0-0.5); Absolute Lymphocytes (CBC) 1.9 K/uL (0.7-4.9); Absolute Monocytes 0.8 K/uL (0.1-1.3); Absolute Neutrophil 3.9 K/uL (1.8-8.0); Eosinophils % 3.5 % (0-4.4); Hematocrit 43.7 % (39.6-49.0); Hemoglobin 14.7 g/dL (13.6-17.9); Lymphocytes % 27.8 % (15.3-44.8); MCH 28.9 pg (27.0-35.0); MCHC 33.5 g/dL (32.0-36.0); MCV 86.1 fL (80-100); MPV 8.7 fL (7.6-11.3); Monocytes % 11.9 % (3.3-12.3); Neutrophils % 55.8 % (41.7-73.7); Nucleated Red Blood Cells % 0.1 % (0-0); Platelets 256 thou/uL (152-406); RBC Red Blood Cell Count 5.07 M/uL (4.33-5.43); Red Cell Distribution Width 14.1 % (12.1-15.2)
[2024-07-24 01:54] LABS: Influenza A Ag Negative; Influenza B Ag Negative; SARS-CoV-2 Antigen Rapid Res Negative (Negative)
[2024-07-24 01:57] LABS: Anion Gap 9.6 mEq/L (5.0-15.0); Potassium 3.6 mEq/L (3.5-5.1); Troponin High Sensitivity 4.7 pg/mL (<58.9)
--- NOTE | 2024-07-24 03:32 | EDPHYS ---
Physician Documentation [facility] Name: Jose Hutson Age: 23 yrs Sex: Male : 2000 Arrival Date: 07/24/2024 Time: 00:54 Bed 17 Private MD: ED Physician Ramu Hayward HPI: 07/24 01:38 This 23 yrs old Black Male presents to ER via Wheelchair with complaints of Headache, ms3 Chest Pain, Near Syncope. 01:38 23-year-old male with no past medical history presents to the emergency department for ms3 headache, dizziness, palpitations that have been ongoing all day. Patient endorses nausea. He denies vomiting or diarrhea. Patient states his mother is sick with a cough and flu like symptoms. He states his discomfort is an 8/10. He denies any alleviating or inciting factors.. Historical: - Allergies: 01:13 Bees; lg3 01:13 PENICILLINS; lg3 - Home Meds: 01:13 None [Active]; lg3 - PMHx: 01:13 None; lg3 - PSHx: 01:13 Appendectomy; lg3 - Immunization history:: Adult Immunizations up to date. - Infectious Disease History:: Denies. - Social history:: Smoking status: Patient reports the use of cigarette tobacco products, denies chronic smoking, but will smoke occasionally, Patient uses street drugs, marijuana. ROS: 01:38 Constitutional: Negative for fever, and chills. ms3 01:38 Respiratory: Negative for shortness of breath, cough, wheezing, and pleuritic chest pain, Skin: Negative for injury, rash, and discoloration, 01:38 Cardiovascular: Positive for palpitations, 01:38 Neuro: Positive for headache, Exam: 01:38 Constitutional: This is a well developed, well nourished patient who is awake, alert, ms3 and in no acute distress. Cardiovascular: Regular rate and rhythm with a normal S1 and S2. No gallops, murmurs, or rubs. Normal PMI, no JVD. No pulse deficits. Respiratory: Lungs have equal breath sounds bilaterally, clear to auscultation and percussion. No rales, rhonchi or wheezes noted. No increased work of breathing, no retractions or nasal flaring. Abdomen/GI: Soft, non-tender, with normal bowel sounds. No distension or tympany. No guarding or rebound. No evidence of tenderness throughout. Skin: Warm, dry with normal turgor. Normal color with no rashes, no lesions, and no evidence of cellulitis. MS/ Extremity: Pulses equal, no cyanosis. Neurovascular intact. Full, normal range of motion. 02:16 ECG was reviewed by the Attending Physician. ms3 Vital Signs: 01:10 BP 146 / 89; Pulse 85; Resp 16 S; Temp 98.2(O); Pulse Ox 99% on R/A; Weight 104.33 kg lg3 (R); Height 6 ft. 1 in. (R); Pain 8/10; 02:30 BP 133 / 85; Pulse 85; Resp 17; Pulse Ox 100% on R/A; rg5 01:10 Body Mass Index 30.34 (104.33 kg, 185.42 cm) lg3 01:10 Pain Scale: Adult lg3 MDM: 01:13 Medical Screening Exam initiated ms3 01:38 Differential diagnosis: PVCs versus electrolyte abnormality versus viral illness. ms3 04:08 Data reviewed: vital signs, nurses notes, lab test result(s), EKG, radiologic studies, ms3 and as a result, I will discharge patient. I considered the following discharge prescriptions or medication management in the emergency department Medications were administered in the Emergency Department. See MAR. Independent interpretation of the following test(s) in the Emergency Department EKG: See my EKG interpretation above X-Ray: My interpretation is Chest x-ray image reviewed by me does not reveal pneumonia or pneumothorax.. Counseling: I had a detailed discussion with the patient and/or guardian regarding the historical points, exam findings, and any diagnostic results supporting the discharge/admit diagnosis, lab results, radiology results, the need for outpatient follow up, to return to the emergency department if symptoms worsen or persist or if there are any questions or concerns that arise at home. Response to treatment: the patient's symptoms have markedly improved after treatment, and as a result, I will discharge patient. Special discussion: Based on the patient's history, exam, and Dx evaluation, there is no indication for emergent intervention or inpatient Tx. It is understood by the patient/guardian that if the Sx's persist or worsen they need to return immediately for re-evaluation. ED course: On reevaluation patient is improved, alert and oriented x 4, no apparent distress, nontoxic-appearing, ambulatory in the emergency department, speaking full sentences. Patient to follow-up with primary care physician as instructed. All questions were answered. Return precautions discussed include chest pain, shortness of breath, lightheadedness, worsening symptoms, or any other concerns.. 07/24 01:07 Order name: Basic Metabolic Panel; Complete Time: 01:59 ms3 07/24 01:07 Order name: CBC with Diff; Complete Time: 01:48 ms3 07/24 01:07 Order name: Troponin HS; Complete Time: 01:59 ms3 07/24 01:14 Order name: COVID-19 Ag + Flu A+B Ag; Complete Time: :59 ms3 07/24 01:07 Order name: XRAY Chest (1 view) 3 07/24 01:07 Order name: EKG; Complete Time: 01:07 ms3 07/24 01:07 Order name: EKG - Nurse/Tech; Complete Time: :51 ms3 07/24 01:07 Order name: Cardiac monitoring; Complete Time: 02:23 ms3 07/24 01:07 Order name: IV Saline Lock; Complete Time: :51 ms3 07/24 01:07 Order name: Labs collected and sent; Complete Time: :51 ms3 07/24 01:07 Order name: O2 Per Protocol; Complete Time: :51 ms3 07/24 01:07 Order name: O2 Sat Monitoring; Complete Time: :51 ms3 EC:16 Rate is 72 beats/min. Rhythm is regular. QRS [place] is Normal. [place] interval is normal. QRS ms3 interval is normal. Clinical impression: Normal ECG. Interpreted by me. Reviewed by me. Administered Medications: 01:37 Drug: Ibuprofen PO 600 mg PO once Route: PO; lg3 02:23 Follow up: Response: No adverse reaction; Pain is decreased rg5 Disposition Summary: 07/24/24 03:31 Discharge Ordered Notes: Location: Home ms3 Condition: Stable ms3 Diagnosis - Palpitations ms3 - Headache ms3 - Lightheadedness ms3 Followup: ms3 - With: Nicolas Moeller, DO - When: 2 - 3 days - Reason: Recheck today's complaints Discharge Instructions: - Discharge Summary Sheet ms3 - General Headache Without Cause ms3 - Palpitations ms3 - Dizziness, [id number] ms3 Forms: - Medication Reconciliation Form ms3 - Antibiotic Education ms3 - Prescription Opioid Use ms3 - Patient Portal Instructions ms3 - Leadership Thank You Letter ms3 Signatures: Dispatcher [employer] EDAshlie Smart RN RN lg3 Ramu Hayward DO DO ms3 Ino Berry RN rg5 Corrections: (The following items were deleted from the chart) 01:07 01:07 BASIC METABOLIC PANEL+C.LAB.BRZ ordered. EDMS EDMS 01:07 01:07 CBC+H.LAB.BRZ ordered. EDMS EDMS 01:07 01:07 Troponin High Sensitivity+C.LAB.BRZ ordered. EDMS EDMS 01:08 01:08 Chest Single View+RAD.RAD.BRZ ordered. EDMS EDMS 01:14 01:14 COVID-19 Ag + Flu A+B Ag+I.LAB.BRZ ordered. EDMS EDMS
--- NOTE | 2024-07-24 03:32 | ER ---
Nurse's Notes [facility] Name: Jose Hutson Age: 23 yrs Sex: Male : 2000 Arrival Date: 07/24/2024 Time: 00:54 Bed 17 Private MD: Diagnosis: Palpitations;Headache;Lightheadedness Presentation: 07/24 01:10 Chief complaint: Patient states: i came here at the beginning at the month i had an lg3 abscess. today I've had a headache all day similar to when i had the abscess and im dizzy and im nauseous. Coronavirus screen: Client denies travel out of the [place] in the last 14 days. At this time, the client does not indicate any symptoms associated with coronavirus-19. Ebola Screen: No symptoms or risks identified at this time. Initial Sepsis Screen: Does the patient meet any 2 criteria? No. Patient's initial sepsis screen is negative. Does the patient have a suspected source of infection? No. Patient's initial sepsis screen is negative. Risk Assessment: Do you want to hurt yourself or someone else? Patient reports no desire to harm self or others. Onset of symptoms was July 23, 2024. 01:10 Method Of Arrival: Wheelchair lg3 01:10 Acuity: KOREY 3 lg3 Triage Assessment: 01:13 Headache History: The patient has had previous headaches and this one is similar to lg3 previous episodes. General: Appears in no apparent distress. comfortable, Behavior is calm, cooperative. Pain: Complains of pain in head Pain does not radiate. Pain currently is 8 out of 10 on a pain scale. Pain began 1 day ago. Also complains of nausea. EENT: No deficits noted. No signs and/or symptoms were reported regarding the EENT system. Neuro: Clark Agitation-Sedation Scale (RASS): 0 - Alert and Calm Level of Consciousness is awake, alert, obeys commands, Oriented to person, place, time, situation, Reports dizziness, headache weakness. Cardiovascular: No deficits noted. Denies chest pain, shortness of breath, Capillary refill < 3 seconds Clubbing of nail beds is absent JVD is absent Patient's skin is warm and dry. Respiratory: No deficits noted. Airway is patent Respiratory effort is even, unlabored, Respiratory pattern is regular, symmetrical. GI: No deficits noted. No signs and/or symptoms were reported involving the gastrointestinal system. : No signs and/or symptoms were reported regarding the genitourinary system. Derm: No deficits noted. No signs and/or symptoms reported regarding the dermatologic system. Skin is intact, is healthy with good turgor, Skin is dry, Skin is normal, Skin temperature is warm. Musculoskeletal: No deficits noted. Circulation, motion, and sensation intact. Range of motion: intact in all extremities. Historical: - Allergies: 01:13 Bees; lg3 01:13 PENICILLINS; lg3 - Home Meds: 01:13 None [Active]; lg3 - PMHx: 01:13 None; lg3 - PSHx: 01:13 Appendectomy; lg3 - Immunization history:: Adult Immunizations up to date. - Infectious Disease History:: Denies. - Social history:: Smoking status: Patient reports the use of cigarette tobacco products, denies chronic smoking, but will smoke occasionally, Patient uses street drugs, marijuana. Screenin:16 [facility] ED Fall Risk Assessment (Adult) History of falling in the last 3 months, lg3 including since admission No falls in past 3 months (0 pts) Confusion or Disorientation No (0 pts) Intoxicated or Sedated No (0 pts) Impaired Gait No (0 pts) Mobility Assist Device Used No (0 pt) Altered Elimination No (0 pt) Score/Fall Risk Level 0 - 2 = Low Risk Oriented to surroundings, Maintained a safe environment, Educated pt \T\ family on fall prevention, incl call for assistance when getting out of bed, Assessed \T\ reinforced patient's understanding of fall precautions. Abuse screen: Denies threats or abuse. Denies injuries from another. Nutritional screening: No deficits noted. Tuberculosis screening: No symptoms or risk factors identified. Assessment: 01:16 General: see triage assessment. Pain: Complains of pain in head. lg3 02:30 Reassessment: Patient and/or family updated on plan of care and expected duration. Pain rg5 level reassessed. Patient is alert, oriented x 3, equal unlabored respirations, skin warm/dry/pink. Patient states symptoms have improved. Vital Signs: 01:10 BP 146 / 89; Pulse 85; Resp 16 S; Temp 98.2(O); Pulse Ox 99% on R/A; Weight 104.33 kg lg3 (R); Height 6 ft. 1 in. (R); Pain 8/10; 02:30 BP 133 / 85; Pulse 85; Resp 17; Pulse Ox 100% on R/A; rg5 01:10 Body Mass Index 30.34 (104.33 kg, 185.42 cm) lg3 01:10 Pain Scale: Adult 3 ED Course: 00:55 Patient arrived in ED. jj6 00:55 Ramu Hayward DO is Attending Physician. ms3 01:13 Triage completed. lg3 01:13 Arm band placed on right wrist. lg3 01:16 Patient taken to [facility], ambulatory, steady gait. lg3 01:16 Patient has correct armband on for positive identification. lg3 01:32 Basic Metabolic Panel Sent. bf2 01:32 CBC with Diff Sent. bf2 01:32 Troponin HS Sent. bf2 01:33 Inserted saline lock: 22 gauge in left antecubital area, using aseptic technique. bf2 01:51 XRAY Chest (1 view) In Process Unspecified. EDMS 01:51 EKG done, by ED staff, reviewed by Ramu Hayward DO. lg3 02:23 Ino Berry, RN is Primary Nurse. rg5 02:30 Door closed. Noise minimized. rg5 02:30 No provider procedures requiring assistance completed. rg5 03:31 Nicolas Moeller DO is Referral Physician. ms3 Administered Medications: 01:37 Drug: Ibuprofen PO 600 mg PO once Route: PO; lg3 02:23 Follow up: Response: No adverse reaction; Pain is decreased rg5 Medication: 01:16 VIS not applicable for this client. lg3 Outcome: 03:31 Discharge ordered by . ms3 03:36 Patient left the ED. rg5 Signatures: Dispatcher [employer] EDMS Ashlie Garces RN RN 3 Ramu Hayward DO DO ms3 Cee Lai jj6 Juan R Mosley bf2 Ino Berry, PAULINE RN rg5
[2024-07-24 03:40] VITALS: TEMP 98.2
[2024-07-24 03:42] VITALS: BP 133/85; O2SAT 100
--- NOTE | 2024-07-24 03:45 | RAD REPORT ---
EXAM: XR Chest, 1 View CLINICAL HISTORY: The patient is 23 years old and is Male; CHEST PAIN TECHNIQUE: Frontal view of the chest. COMPARISON: No relevant prior studies available. FINDINGS: Lungs: Unremarkable. No consolidation. Pleural space: Unremarkable. No pneumothorax. Heart: Unremarkable. Mediastinum: Unremarkable. Normal mediastinal contour. Bones/joints: No acute findings. IMPRESSION: No acute findings in the chest. Electronically signed by: Rodríguez Fontanez MD 07/24/2024 02:46 AM [facility])[3] 8 Due to temporary technical issues with the PACS/[employer] reporting system, reports are being emiliano d by the in-house radiologist without review as a courtesy to ensure prompt reporting the interpreting radiologist is fully responsible for the content of the report. Transcribed Date/Time: 07/24/2024 3:44 AM
--- NOTE | 2024-07-25 12:00 | EKG ---
Test Date: 2024-07-24 Test Time: 01:42:44 Er Registrar: GRACE MEASUREMENT RESULTS: Intervals: Rate: 72 TN: 180 QRSD: 112 QT: 390 QTc: 427 [place]: P: 62 TN: 180 QRS: 61 T: 37 INTERPRETIVE STATEMENTS: Normal sinus rhythm Normal ECG No previous ECG available for comparison Electronically Signed On 07-25-24 11:58:28 ROOFING APPLICATOR by Agustin Almonte
== END 2024-07-24 03:36 | disposition home or self-care (01) ==
LOC: ER 00:54
DX: R00.2 Palpitations (principal); R51.9 Headache, unspecified; R42 Dizziness and giddiness; F17.210 Nicotine dependence, cigarettes, uncomplicated; Z11.52 Encounter for screening for COVID-19
CPT/HCPCS: 36415; 71045; 80048; 84484; 85025; 87428; 93005; 99284